=== PATIENT | male | born 1990 | race Caucasian/White ===

== ENCOUNTER 2024-03-11 23:47 | Emergency (ER) | payer OTHER, SELFPAY ==
[2024-03-11 23:53] VITALS: BP 140/97; PULSE 69; RESP 24; TEMP 36.1; O2SAT 97; BMI 28.4
[2024-03-11 23:57] VITALS: O2SAT 96
[2024-03-12] VITALS (7 sets, daily range): BP systolic 101–123; BP diastolic 49–86; PULSE 60–78; RESP 12–27; TEMP 36.5; O2SAT 95–99
--- NOTE | 2024-03-12 00:07 | RAD_ITS ---
EXAM: XR CHEST, 1 VIEW CLINICAL INDICATION: dyspnea TECHNIQUE: Frontal view of the chest. COMPARISON: No relevant prior studies available. FINDINGS: LUNGS AND PLEURAL SPACES: Unremarkable. No consolidation or edema. No pneumothorax. No effusion. HEART: Unremarkable. Cardiac silhouette not enlarged. MEDIASTINUM: Central airways and mediastinal contour are unremarkable. BONES/JOINTS: Unremarkable. No acute fracture. SOFT TISSUES: Unremarkable. RAD/Chest 1 View (Portable) IMPRESSION: No radiographic evidence of acute cardiopulmonary disease. Electronically Signed: Pancho Bowser MD at 1:25 EDT ,
--- NOTE | 2024-03-12 00:07 | EKG12_ITS ---
Test Reason : CP Blood Pressure : / mmHG Vent. Rate : 078 BPM Atrial Rate : 078 BPM P-R Int : 152 ms QRS Dur : 084 ms QT Int : 386 ms P-R-T Axes : 033 030 043 degrees QTc Int : 440 ms Sinus rhythm with frequent Premature ventricular complexes Possible Lateral infarct , age undetermined Inferior infarct , age undetermined Abnormal ECG Confirmed by LOUIE RYAN, ALBER ([id number]), commissioning editor JENNY RENTERIA ([id number]) on 03/14/2024 6:46:52 AM Referred By: FRANCISCA Confirmed By:ALBER PALMA MD
--- NOTE | 2024-03-12 00:08 | ED.VIS.DYS ---
HPI History of Present Illness Chief Complaint: Chest Pain Informant: patient, spouse/S.O. and family Narrative Narrative: 34-year-old [place] male presenting to the emergency room with chief complaint of dyspnea and irregular heartbeat. Patient states that symptoms began around 8:00 this evening. He states he cannot really describe shortness of breath. He states that every now and then he will feel his heart with an extra beat and will pause. He states symptoms began when he got done mowing some obrien stones. 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 He is a tobacco user. He denies any arm or leg symptoms. He denies any pain in the chest or abdomen or upper back or shoulders. He states he currently takes no medications or supplements. PFSH PFS Home Medications ?Medication ?Instructions ?Recorded ?Last Taken ?Type NK 03/12/24 Unknown History Allergy/AdvReac Type Severity Reaction Status Date / Time No Known Allergies Allergy Verified 03/11/24 23:51 Social History Smoking Status: Current every day smoker tobacco type: cigarettes ROS ROS ED Constitutional Constitutional ED: Denies chills, fever(s) or weight loss Eyes Eyes: Denies change in vision or diplopia ENT ENT ED: Denies ear pain, rhinorrhea or sore throat Cardiovascular Cardiovascular: Reports palpitations; Denies chest pain, orthopnea or racing heartbeat Respiratory/Chest Respiratory/Chest: Reports dyspnea; Denies cough, dyspnea on exertion or orthopnea Gastrointestinal Gastrointestinal: Denies abdominal pain, diarrhea, nausea or vomiting Genitourinary Genitourinary ED: Denies dysuria, hematuria or urinary frequency Musculoskeletal Musculoskeletal: Denies arthralgias, back pain, myalgias or neck pain Integumentary Denies abscess or rash Neurologic Neurologic: Denies headache(s) or weakness Psychiatric Psychiatric: Denies anxiety, depression, suicidal ideation or suicidal thoughts Endocrine Endocrinology: Denies polydipsia, polyphagia or polyuria Allergic/Immunologic Allergic/Immunologic ED: Denies mouth swelling, tongue swelling or urticaria EXAM Physical Exam Narrative Exam Narrative: 34-year-old male well appearing in no acute distress laying back in the bed. His respiratory rate for me is 10. No accessory muscle use. No deep breathing. Speaking in full sentences. Const Vital Signs: 05/31/24 23:51 03/11/24 23:53 03/11/24 23:57 Temperature 97 F L Temperature Source Temporal Pulse Rate 69 Respiratory Rate 24 H Respiratory Effort Normal Short of Breath Respiratory Depth Normal Respiratory Pattern Normal Blood Pressure 140/97 H Blood Pressure Mean 111 Pulse Ox 97 Oxygen Delivery Method Room Air Room Air 03/12/24 00:10 03/12/24 00:15 03/12/24 00:30 Temperature Temperature Source Pulse Rate 70 78 74 Respiratory Rate 23 H 12 24 H Respiratory Effort Respiratory Depth Respiratory Pattern Blood Pressure 123/86 H 111/77 Blood Pressure Mean 96 87 Pulse Ox 96 99 97 Oxygen Delivery Method Room Air 03/12/24 00:45 03/12/24 01:00 03/12/24 02:00 Temperature Temperature Source Pulse Rate 77 68 60 Respiratory Rate 21 H 16 16 Respiratory Effort Respiratory Depth Respiratory Pattern Blood Pressure 113/77 101/49 L 110/64 Blood Pressure Mean 87 66 79 Pulse Ox 96 98 95 Oxygen Delivery Method Room Air Room Air Room Air Positive well nourished and well developed General Appearance ED: well developed HEENT Reports normocephalic, head/scalp atraumatic and moist mucous membranes Eyes PERRL and EOMs intact bilaterally Neck no lymphadenopathy, supple and no JVD Resp normal respiratory effort and clear to auscultation bilaterally Cardio regular rate, regular rhythm and no murmurs GI normal to inspection, nondistended, normoactive bowel sounds and non-tender Palpation: soft Back/Spine no CVA tenderness and normal ROM Extremity normal to inspection General Extremety ED: Negative for edema General Extremity: Negative for edema Neuro oriented x3 and CN's II-XII intact bilaterally Sensorium / Orientation: alert Motor Exam: strength 5/5 throughout Psych mental status grossly normal Mood & Affect: Negative for depressed or tearful Skin no rashes or lesions noted and no wounds MDM MDM MDM Narrative Medical decision making narrative: EKG demonstrates a sinus rhythm with P PVCs. During my examination the patient had 1 PVC. My independent interpretation of the chest x-ray is no acute process. CBC and BMP were obtained and were negative. Liver lipase normal. 2 sets of cardiac enzymes were normal and D-dimer is normal. Patient's had very minimal PVCs on the monitor. No dysrhythmias noted. At this point I think the patient can be discharged home. I am not seeing evidence of ACS, pneumothorax, pneumonia, aortic dissection or aneurysm, no pulmonary embolism. History & Record Review Discussion w/independent historian: Patient and Family Lab Data Attestation: I reviewed the patient's lab results. Labs: Laboratory Results - last 24 hr 03/11/24 03/12/24 23:56 01:57 WBC 6.1 RBC 4.87 Hgb 14.5 Hct 42.3 MCV 86.9 MCH 29.8 MCHC 34.3 RDW Std Deviation 38.7 RDW Coeff of Millie 12.1 Plt Count 206 MPV 10.2 Immature Gran % (Auto) 1.000 H Neut % (Auto) 52.9 Lymph % (Auto) 31.4 Clare % (Auto) 12.0 H Eos % (Auto) 2.0 Baso % (Auto) 0.7 Absolute Neuts (auto) 3.2 Absolute Lymphs (auto) 1.91 Nucleated RBC % 0 D-Dimer Quant (PE/DVT) < 0.27 L Sodium 139 Potassium 3.5 Chloride 108 H Carbon Dioxide 24.0 Anion Gap 7 BUN 16 Creatinine 0.93 Estim Creat Clear Calc 132.61 Est GFR (MDRD) Af Amer 121 Est GFR (MDRD) Non-Af 100 BUN/Creatinine Ratio 17.2 Glucose 102 Calcium 9.3 Total Bilirubin 0.30 Direct Bilirubin 0.12 AST 18 ALT 25 Alkaline Phosphatase 59 Troponin I High Sens 4 6 Total Protein 7.2 Albumin 4.0 Globulin 3.2 Lipase 32 Radiography Diagnostic Testing: Clinical Impression(s) from Imaging Studies Chest X-Ray 03/12/24 00:07 IMPRESSION: No radiographic evidence of acute cardiopulmonary disease. Electronically Signed: Pancho Bowser MD at 1:25 EDT , EKG Initial EKG: Attestation: I personally reviewed and interpreted this EKG as follows: Comments: Sinus rhythm with PVCs ventricular rate of 78 bpm Discharge Plan Triage Chief Complaint: Chest Pain Other Complaint: Shortness of Breath ED Provider: Terry De Paz Dx/Rx/DC Orders Clinical Impression: Chest pain, Palpitations Instructions: ED Palpitations Prescriptions: No Action NK Primary Care Provider: Care Physician,No Primary Referrals: Pipo Aquino MD [Med Staff - Active Staff] - As Needed (for primary care ) Care Physician,No Primary [Primary Care Provider] - Print Language: Vietnamese Disposition Disposition: Home, Self Care
[2024-03-12] MEDS: 0.9% Normal Saline (1000mL) 1,000 ML 1000 ML IV (00:11)
[2024-03-12 00:36] LABS: Absolute Lymphocyte Count 1.91 X10^3/uL (0.83-4.51); Absolute Neutrophil Count 3.2 X10^3/uL (2.0-7.7); Basophil# 0.04 X10^3/uL; Basophil% 0.7 % (0-1); Eosinophil# 0.12 X10^3/uL; Hematocrit 42.3 % (40-54); Hemoglobin 14.5 g/dL (13.0-16.5); Lymphocyte # 1.91 X10^3/ul (0.83-4.51); Lymphocyte % 31.4 % (19-41); Mean Corp Hgb Conc 34.3 g/dL (32-36); Mean Corpuscular Hgb 29.8 pg (27.0-32.0); Mean Corpuscular Volume 86.9 fL (80-94); Mean Platelet Vol. 10.2 fl (6.2-12.0); Monocyte# 0.73 X10^3/uL; NRBC Flagged by Analyzer 0 % (0-5); Neutrophil # 3.23 X10^3/uL (2.7-7.7); Neutrophil % 52.9 % (47-70); Platelet Count 206 K/mm3 (150-450); RBC Distribution Width CV 12.1 % (11.6-14.6); RBC Distribution Width SD 38.7 fl (35.1-43.9); Red Blood Count 4.87 M/mm3 (4.6-6.2); White Blood Count 6.1 K/mm3 (4.4-11.0)
[2024-03-12 00:43] LABS: AST(SGOT) 18 U/L (15-37); Alanine Aminotransfer ALT/SGPT 25 U/L (16-61); Alkaline Phosphatase 59 U/L (45-117); Anion Gap 7 (5-15); BUN 16 mg/dL (7-18); BUN/Creat Ratio 17.2 RATIO (10-20); Bilirubin, Direct 0.12 mg/dL (0.00-0.30); Calcium,Total 9.3 mg/dL (8.5-10.1); Chloride 108 mmol/L (98-107); Creatinine, Serum 0.93 mg/dL (0.70-1.30); EST Glomerular Filtration Rate 100 mL/min (>60); Est Glom Filt Rate - Afr Amer 121 mL/min (>60); Estimated Creatinine Clearance 132.61 ml/min; Globulin 3.2 g/dL (2.2-4.2); Glucose 102 mg/dL (74-106); Lipase 32 U/L (13-75); Potassium 3.5 mmol/L (3.5-5.1); Protein, Total 7.2 g/dL (6.4-8.2); Sodium Level 139 mmol/L (136-145)
[2024-03-12 00:52] LABS: D-Dimer Quantitative (DVT/PE) < 0.27 FEU/ug/m (0.27-0.49)
[2024-03-12 01:10] LABS: Troponin-I HS 4 pg/mL (3.0-78.0)
[2024-03-12 02:17] LABS: Troponin-I HS 6 pg/mL (3.0-78.0)
== END 2024-03-12 03:05 | disposition home or self-care (01) ==
PROVIDERS: Emergency Provider Emergency Medicine; Visit Provider Emergency Medicine
DX: R07.9 Chest pain, unspecified (principal); R00.2 Palpitations; F17.210 Nicotine dependence, cigarettes, uncomplicated
CPT/HCPCS: 71045; 80048; 80076; 83690; 84484; 85025; 85379; 93005; 96360; 99285; A4216